=== PATIENT | male | born 1990 | race Hispanic/Latino ===

== ENCOUNTER 2022-12-12 21:05 | Emergency (ER) | payer OTHER ==
[~2022-12-12] VITALS: Ht 170.2 cm; Wt 61.0 kg
[2022-12-12] MEDS ORDERED: AMOX TR-K CLV1 EAC1 PO (21:51)
[2022-12-12 22:03] LABS: INFLUENZA B NAA NEGATIVE (NEGATIVE); RESPIRATORY SYNCYTIAL VIR NAA NEGATIVE (NEGATIVE)
[2022-12-12 22:06] VITALS: BP 126/79
== END 2022-12-12 22:07 | disposition home or self-care (01) ==
LOC: ED 21:05
PROVIDERS: Family Medicine
DX: J02.0 Streptococcal pharyngitis (principal); Z20.822 Contact with and (suspected) exposure to COVID-19
CPT/HCPCS: 87502; 87651; 96372; 99283-25; J1885; U0002

== ENCOUNTER 2023-01-28 06:46 | Day surgery (SDC) | payer OTHER ==
[2023-01-14 14:00] VITALS: BP 110/69
[~2023-01-28] VITALS: Ht 170.2 cm; Wt 67.1 kg
--- NOTE | ~2023-01-28 | OR ---
[facility] [address], [place] [address] Draft DATE OF OPERATION: 01/28/2023 SURGEON: Orlando Rivera MD PREOPERATIVE DIAGNOSES: 1. Chronic tonsillitis. 2. Tonsillar hypertrophy. 3. Tonsil lithiasis. POSTOPERATIVE DIAGNOSES: 1. Chronic tonsillitis. 2. Tonsillar hypertrophy. 3. Tonsil lithiasis. PROCEDURE: Tonsillectomy. ANESTHESIA: General orotracheal, RFID SYSTEMS ARCHITECT, Franc. PREOPERATIVE HISTORY: Mr. Morro Olmos is a 32-year-old male with chronic tonsillitis, multiple infections, taken to the operating room for the above-mentioned procedures. OPERATIVE PROCEDURE AND FINDINGS: After informed consent, the patient was taken to the operating room, placed in the supine position where general orotracheal anesthesia was induced. The patient and procedure were verified. The patient was repositioned. McIvor mouth gag placed into suspension. Headlight exam of the pharynx showed moderately hypertrophic cryptic tonsils. The left tonsil was grasped with a tenaculum, retracted medially and removed from its fossa with mucosal sparing incisions with Coblation. Same procedure on the right tonsil. Tonsils were sent to pathology. The mouth gag was released for several minutes. Reinspection showed no bleeding points. The pharynx was suctioned clear of blood and secretions. Mouth gag was removed. The patient was awakened, extubated, transported to the recovery room in good condition. No complications. BLOOD LOSS: Minimal. SPECIMEN: PATIENT NAME: NATHANIEL ABBOTT OPERATIVE REPORT DATE OF : [birth year] REPORT #: [id number] PHYSICIAN: ORLANDO RIVERA MD PCP: NO PRIMARY CARE PHYSICIAN REPORT IS CONFIDENTIAL AND NOT TO BE RELEASED WITHOUT AUTHORIZATION [address] [address] Draft To pathology. DRAINS: No drains. Orlando Rivera MD /MODL /[id number] Copies: ~ PATIENT NAME: NATHANIEL ABBOTT OPERATIVE REPORT DATE OF : [birth year] REPORT #: [id number] PHYSICIAN: ORLANDO RIVERA MD PCP: NO PRIMARY CARE PHYSICIAN REPORT IS CONFIDENTIAL AND NOT TO BE RELEASED WITHOUT AUTHORIZATION
[~2023-01-28 06:46] MED LIST: AMOX TR-K CLV1 EAC1 PO
--- NOTE | 2023-01-28 07:00 | NUR ---
PT PROVIDES VERBAL CONSENT FOR GIRLFRIEND TO TRANSLATE.
[2023-01-28 07:38] VITALS: BP 117/64
--- NOTE | 2023-01-28 10:07 | NUR ---
01/28/23 1007 Nayeli Riggs 1002-PATIENT ARRIVED TO PACU ON 6L MASK RR EVEN ORAL AIRWAY IN PLACE NONAROUSABLE. RN DOING JAW THRUST TO MAINTAIN OPEN AIRWAY. SR. IVF INFUSING. NO DRAINAGE FROM MOUTH. 1005-PATIENT REMAINS NONAROUSABLE ORAL AIRWAY IN PLACE RN NOT NEEDING TO DO JAW THRUST RR EVEN 100% 6L MASK
--- NOTE | 2023-01-28 11:10 | NUR ---
PT BACK TO DAY SURGERY RM 5 VIA STRETCHER FROM PACU VIA THIS RN. BEDSIDE REPORT RECEIVED FROM DELILAH RAIN. PT IS DROWSY BUT RESPONSIVE TO VERBAL STIMULI, EYES QUICKLY CLOSE AGAIN. RESPIRATIONS EVEN AND UNLABORED, NO SIGNS OF DISTRESS. O2 >90% ON RA VIA CONT. PULSE OX. PT REPORTS NO PAIN OR NAUSEA AT THIS TIME. SLIGHT AUDIBLE SNORE WHILE RESTING. PT APPEARS COMFORTABLE AT THIS TIME. GIRLFRIEND CALLED. CALL LIGHT WITHIN REACH, NO FURTHER NEEDS AT THIS TIME.
[2023-01-28 11:13] VITALS: BP 109/72
--- NOTE | 2023-01-28 12:00 | NUR ---
IN PT ROOM D/T ANSWERED CALL LIGHT. PT REPORTS NEED TO URINE VOID. PT UP TO SIDE OF BED AND REPORTS NO DIZZINESS OR NAUSEA AT THIS TIME. STANDBY ASSIST PT TO RESTROOM, PT URINE VOID. PT BACK TO BED. JELLO AND ICE WATER PROVIDED AT THIS TIME (PT EDUCATED ABOUT NOT USING STRAW). PT TOLERATED WITHOUT DIFFICULTY SWALLOWING. PT EDUCATED ABOUT SIGNS OF INCREASED BLEEDING (INCREASED SWALLOWING, VOMITING BLOOD, BLOOD COLOR), PT STATES VERBAL UNDERSTANDING AT THIS TIME. CALL LIGHT WITHIN REACH. METAL FORGER'S ASSISTANT HAS TO TEMPORARILY RUN ERRAND AND WILL BE BACK. NO FURTHER NEEDS AT THIS TIME.
[2023-01-28 12:33] VITALS: BP 111/74
--- NOTE | 2023-01-28 12:34 | NUR ---
IN PT ROOM FOR VS AND ASSESSMENT. PT REMAINS DROWSY BUT RESPONSIVE TO VERBAL STIMULI. PT STATES NO PAIN OR NAUSEA AT THIS TIME. NO REPORT OF EXCESSIVE BLEEDING. VS TAKEN. PT GETTING DRESSED W/GIRLFRIEND'S ASSISTANCE. CALL LIGHT WITHIN REACH. NO FURTHER NEEDS AT THIS TIME.
--- NOTE | 2023-01-28 13:00 | NUR ---
THIS RN AND PT GIRLFRIEND IN ROOM FOR DISCHARGE EDUCATION. INFORMATION REGARDING DISCHARGE EDUCATION TRANSLATED USING GIRLFRIEND AT PT REQUEST AND CONSENTED. PT REPORTS NO FURTHER QUESTIONS AT THIS TIME AND STATES VERBAL UNDERSTANDING. EDUCATION PRINTED IN FRISIAN FOR PT CONVENIENCE WELL. IV DC'ED BY THIS RN, JUDIT/YARON IN PLACE. PT ESCORTED OFF OF UNIT BY THIS RN TO PASSENGER SIDE OF GIRLFRIEND'S VEHICLE. ALL BELONGINGS IN PT POSSESSION AT THIS TIME. PT STATES NO FURTHER NEEDS OR QUESTIONS.
--- NOTE | 2023-01-31 15:57 | PATH ---
[facility] [address], [place] [address] Signed SPECIMEN(S): A TONSIL, GROSS ONLY, BILAT SPECIMEN SOURCE: A. TONSIL, GROSS ONLY, BILAT CLINICAL HISTORY: Chronic tonsillitis. FINAL PATHOLOGIC DIAGNOSIS: Bilateral tonsils, gross only: Two undesignated tonsils measuring 3.0 and 0.7 cm. JVR:[facility] GROSS DESCRIPTION: The specimen, labeled and designated "Morro Nickolas, tonsil, gross only, bilateral" and designated on the requisition "left tonsil and right tonsil, gross only," is received in formalin and consists of two red-brown to brown-martinez undesignated tonsils (3.0 x 2.2 x 1.7 cm and 0.7 x 2.0 x 2.0 cm). One of the tonsils is arbitrarily inked blue, and both tonsils are serially sectioned to reveal red-brown to martinez convoluted cut surfaces. The specimen is for gross examination only VB (under the direct supervision of a pathologist) The Gross Description was prepared using a voice recognition system. The report was reviewed for accuracy; however, sound-alike word errors, addition and/or deletions may occur. If there is any question about this report, please contact Client Services. PERFORMING LABORATORY: Technical component was performed by [facility], [address] [place] [id number] (CLIA# [id number]). Professional interpretation was performed by [facility] - [facility], [address] [place] [id number] (CLIA#: [id number]). Diagnostician: Khris Hidalgo MD Pathologist Electronically Signed 01/31/2023 Copies: PATIENT NAME: NATHANIEL ABBOTT PATHOLOGY DATE OF : [birth year] REPORT #: [id number] PHYSICIAN: [facility] PCP: NO PRIMARY CARE PHYSICIAN REPORT IS CONFIDENTIAL AND NOT TO BE RELEASED WITHOUT AUTHORIZATION [address] [address] Signed ~ PATIENT NAME: NATHANIEL ABBOTT PATHOLOGY DATE OF : [birth year] REPORT #: [id number] PHYSICIAN: [facility] PCP: NO PRIMARY CARE PHYSICIAN REPORT IS CONFIDENTIAL AND NOT TO BE RELEASED WITHOUT AUTHORIZATION
== END 2023-01-28 13:00 | disposition home or self-care (01) ==
LOC: DS 06:46 → OPS 06:46
PROVIDERS: ATTEND Otolaryngology
PROC: 0CBPXZZ Excision of Tonsils, External Approach (ICD-10-PCS; principal; 2023-01-28 08:30)
DX: J35.01 Chronic tonsillitis (principal); J35.8 Other chronic diseases of tonsils and adenoids; G47.30 Sleep apnea, unspecified
CPT/HCPCS: 00170; J0330; J0461; J1100; J1885; J2250; J2405; J2704; J2765; J3010; J7040; J7121